=== PATIENT | female | born 1975 | race Caucasian/White ===

== ENCOUNTER 2017-06-14 15:46 | Emergency (ER) | payer OTHER ==
[~2017-06-14] VITALS: Ht 175.3 cm; Wt 94.8 kg
[2017-06-14 15:59] VITALS: Ht 175.3 cm; Wt 94.8 kg
[2017-06-14 16:49] VITALS: BP 137/79
== END 2017-06-14 16:49 | disposition home or self-care (01) ==
LOC: ED 15:46
DX: K02.9 Dental caries, unspecified (principal); K04.7 Periapical abscess without sinus